=== PATIENT | female | born 1990 | race African-American/Black ===

== ENCOUNTER 2018-09-12 10:46 | Emergency (ER) | payer MEDICAID ==
[~2018-09-12] VITALS: Ht 172.7 cm; Wt 89.4 kg
[2018-09-12 11:38] VITALS: BP 178/76
--- NOTE | 2018-09-12 11:49 | NUR ---
EKG DONE GIVEN TO DR POLO, PT AMBULATES BACK TO THE LOBBY PER DR POLO.
--- NOTE | 2018-09-12 14:13 | NUR ---
FIRST CALL AT THIS TIME WITH NO RESPONSE
--- NOTE | 2018-09-12 14:56 | NUR ---
SECOND CALL AT THIS TIME, PT NOT PRESENT. WILL ATTEMPT 3RD CALL.
== END 2018-09-12 14:13 | disposition left against medical advice (07) ==
LOC: MED 10:46
DX: R07.89 Other chest pain (principal); Z53.21 Procedure and treatment not carried out due to patient leaving prior to being seen by health care provider

== ENCOUNTER 2019-07-31 16:58 | Emergency (ER) | payer MEDICAID, OTHER ==
[~2019-07-31] VITALS: Ht 172.7 cm; Wt 86.2 kg
[2019-07-31 17:04] VITALS: BP 132/72
[2019-07-31] MEDS: KETOROLAC 60 MG/2 ML VIAL IM ONE (17:54)
[2019-07-31 18:30] VITALS: BP 137/74
== END 2019-07-31 18:30 | disposition home or self-care (01) ==
LOC: MED 16:58
DX: M54.42 Lumbago with sciatica, left side (principal)
CPT/HCPCS: 81002; 81025; 96372; 99283; J1885

== ENCOUNTER 2019-12-17 13:48 | Emergency (ER) | payer MEDICAID ==
[~2019-12-17] VITALS: Ht 172.7 cm; Wt 89.8 kg
[2019-12-17 13:49] VITALS: BP 113/76
--- NOTE | 2019-12-17 13:57 | NUR ---
PT AMB TO BED 6.
--- NOTE | 2019-12-17 14:00 | NUR ---
C/O R EYE PAIN 04/25 & SWELLING TO EYELID X YESTERDAY. DENIES TRAUMA OR BLURRY VISION AT THIS TIME. VS STABLE. PT ALERT AND AWAKE. AMBULATORY. DENIES PMH
[2019-12-17 14:42] VITALS: BP 118/72
--- NOTE | 2019-12-17 14:42 | NUR ---
Patient discharged with v/s stable. Written and verbal after care instructions given and explained. Patient alert, oriented and verbalized understanding of instructions. Ambulatory with steady gait. All questions addressed prior to discharge. ID band removed. Patient advised to follow up with PMD. Rx of ERYTHROMYCIN OPHTHALMIC SOLUTION given. INSTRUCTED ON PROPER APPLICATION OF OINTMENT TO EYE. Patient educated on indication of medication including possible reaction and side effects. Opportunity to ask questions provided and answered.
== END 2019-12-17 14:42 | disposition home or self-care (01) ==
LOC: MED 13:48
DX: H01.003 Unspecified blepharitis right eye, unspecified eyelid (principal)
CPT/HCPCS: 99283

== ENCOUNTER 2020-07-01 11:47 | Emergency (ER) | payer MEDICAID, OTHER ==
[~2020-07-01] VITALS: Ht 172.7 cm; Wt 85.3 kg
[2020-07-01] MEDS ORDERED: diphenhydrAMINE 50 MG/ML VIAL IM STA (12:03)
[2020-07-01] MEDS ORDERED: ACETAMINOPHEN 650 MG/20.3 ML UDC PO STA (12:03)
[2020-07-01] MEDS ORDERED: PROCHLORPERAZINE 10 MG/2 ML VIAL IM ONE (12:05)
[2020-07-01] MEDS ORDERED: LORazepam 1 MG TAB PO ONE (12:05)
[2020-07-01] MEDS ORDERED: KETOROLAC 30 MG/ML VIAL IM ONE (12:05)
[2020-07-01 12:11] VITALS: BP 99/80
--- NOTE | 2020-07-01 12:20 | NUR ---
30/F C/O MIGRAINE HEADACHE X4 DAYS WITH N/V. NO ACTIVE VOMITING NOTED. PT C/O SEVERE 10/10 HEADACHE.
--- NOTE | 2020-07-01 12:20 | NUR ---
PT SENT TO LOBBY TO WAIT FOR PENDING PAPERWORK.
[2020-07-01 13:47] VITALS: BP 99/80
--- NOTE | 2020-07-01 13:47 | NUR ---
Patient discharged with v/s stable. Written and verbal after care instructions given and explained. Patient alert, oriented and verbalized understanding of instructions. Ambulatory with steady gait. All questions addressed prior to discharge. ID band removed. Patient advised to follow up with PMD. Rx of Motrin 400mg and Compazine 10mg given. Patient educated on indication of medication including possible reaction and side effects. Opportunity to ask questions provided and answered.
== END 2020-07-01 13:47 | disposition home or self-care (01) ==
LOC: MED 11:47
DX: G43.909 Migraine, unspecified, not intractable, without status migrainosus (principal)
CPT/HCPCS: 96372; 99284; J0780; J1200; J1885

== ENCOUNTER 2020-07-23 14:38 | Emergency (ER) | payer OTHER ==
[~2020-07-23] VITALS: Ht 170.2 cm; Wt 68.0 kg
[2020-07-23 14:46] VITALS: BP 121/65
[2020-07-23] MEDS ORDERED: PROCHLORPERAZINE 5 MG TAB PO ONE (15:10)
[2020-07-23] MEDS ORDERED: KETOROLAC 15 MG/ML VIAL IM ONE (15:10)
--- NOTE | 2020-07-23 16:04 | NUR ---
C/O MIGRAINE SINCE YESTERDAY WITH N/V. DENIES ANY COUGH/SOB NO PMH NKDA
[2020-07-23 17:28] VITALS: BP 121/65
--- NOTE | 2020-07-23 17:28 | NUR ---
PATIENT ELOPED FROM FACILITY. DISCHARGE INSTRUCTIONS NOT GIVEN TO PATIENT. DR. HOOD NOTIFIED.
== END 2020-07-23 17:28 | disposition left against medical advice (07) ==
LOC: MED 14:38
DX: G43.909 Migraine, unspecified, not intractable, without status migrainosus (principal)
CPT/HCPCS: 96372; 99283; J1885; Q0163; Q0164

== ENCOUNTER 2020-12-06 10:07 | Emergency (ER) | payer OTHER ==
[~2020-12-06] VITALS: Ht 172.7 cm; Wt 93.9 kg
[2020-12-06 10:15] VITALS: BP 121/73
[2020-12-06] MEDS ORDERED: KETOROLAC 15 MG/ML VIAL IVP ONE (10:35)
[2020-12-06] MEDS ORDERED: diphenhydrAMINE 50 MG/ML VIAL IVP ONE (10:35)
[2020-12-06] MEDS ORDERED: METOCLOPRAMIDE 10 MG/2 ML INJ VIAL IVP ONE (10:35)
[2020-12-06] MEDS ORDERED: NACL 0.9% 1,000 ML IV ONE (10:35)
[2020-12-06] MEDS ORDERED: ACET-9500 PO (12:08)
[2020-12-06] MEDS ORDERED: ONDA-24 SL (12:08)
[2020-12-06 12:36] VITALS: BP 121/73
== END 2020-12-06 12:35 | disposition home or self-care (01) ==
LOC: MED 10:07
DX: G43.909 Migraine, unspecified, not intractable, without status migrainosus (principal); R11.2 Nausea with vomiting, unspecified; H53.149 Visual discomfort, unspecified
CPT/HCPCS: 81002; 81025; 96361; 96374; 96375; 99284; J1200; J1885; J2765; J7030

== ENCOUNTER 2021-03-29 13:51 | Emergency (ER) | payer OTHER ==
[~2021-03-29] VITALS: Ht 172.7 cm; Wt 88.5 kg
[~2021-03-29 13:51] MED LIST: ACET-9500 PO; ONDA-24 SL
[2021-03-29 14:24] VITALS: BP 132/64
--- NOTE | 2021-03-29 14:31 | NUR ---
PT SENT TO LOBBY
[2021-03-29] MEDS ORDERED: METOCLOPRAMIDE 10 MG TAB PO ONE (15:00)
[2021-03-29] MEDS ORDERED: KETOROLAC 30 MG/ML VIAL IM ONE (15:00)
--- NOTE | 2021-03-29 16:02 | NUR ---
30/F PRESENTS TO ED WITH C/O HEADACHE AND DIZZINESS X2 DAYS. PATIENT STATES SHE HAS HX OF MIGRAINES AND STATES THIS FEELS THE SAME. PATIENT C/O PHOTOSENSITIVITY, DENIES BLURRED VISION, NAUSEA, VOMITING, CP OR SOB. REPORTS TAKING TYLENOL AT HOME WITH MILD RELIEF.
--- NOTE | 2021-03-29 16:20 | NUR ---
DR GARNER ATTEMPTED TO CALL PT, NO ANSWER
--- NOTE | 2021-03-29 16:51 | NUR ---
DR GARNER ATTEMPTED TO CALL PT FOR THE 2ND TIME, NO ANSWER
--- NOTE | 2021-03-29 17:00 | NUR ---
PATIENT ELOPED FROM FACILITY. DISCHARGE INSTRUCTIONS NOT GIVEN TO PATIENT. DR. GARNER NOTIFIED.
== END 2021-03-29 17:00 | disposition left against medical advice (07) ==
LOC: MED 13:51
DX: G43.909 Migraine, unspecified, not intractable, without status migrainosus (principal); R11.0 Nausea; Z79.899 Other long term (current) drug therapy
CPT/HCPCS: 96372; 99283; J1885; J8597; Q0163

== ENCOUNTER 2022-10-17 08:30 | Emergency (ER) | payer OTHER ==
[~2022-10-17] VITALS: Ht 172.7 cm; Wt 97.5 kg
[~2022-10-17 08:30] MED LIST changes: +ACET-8001 PO; -ACET-9500 PO; +ONDA-188 SL; -ONDA-24 SL
[2022-10-17 08:36] VITALS: BP 112/71
[2022-10-17] MEDS ORDERED: PROCHLORPERAZINE 10 MG/2 ML VIAL IM ONE (10:15)
[2022-10-17] MEDS ORDERED: TETRACAINE HCL/PF 0.5% OPTH 4 ML BTL OP ONE (10:15)
[2022-10-17] MEDS ORDERED: IMI50 PO (10:54)
[2022-10-17] MEDS ORDERED: IBUP-2213 PO (10:54)
[2022-10-17] MEDS ORDERED: ASPI-1198 PO (10:54)
[2022-10-17] MEDS ORDERED: ONDA-188 SL (10:56)
[2022-10-17] MEDS ORDERED: PROCHLORPERAZINE 10 MG/2 ML VIAL ONE (11:22)
--- NOTE | 2022-10-17 11:47 | NUR ---
Patient discharged with v/s stable. Written and verbal after care instructions given and explained. Patient alert, oriented and verbalized understanding of instructions. Ambulatory with steady gait. All questions addressed prior to discharge. ID band removed. Patient advised to follow up with PMD. Rx of exedrin, motrin given. Patient educated on indication of medication including possible reaction and side effects. Opportunity to ask questions provided and answered.
== END 2022-10-17 11:45 | disposition home or self-care (01) ==
LOC: MED 08:30
DX: G43.909 Migraine, unspecified, not intractable, without status migrainosus (principal); Z79.899 Other long term (current) drug therapy
CPT/HCPCS: 96372; 99283; J0780